=== PATIENT | male | born 1990 | race African-American/Black ===

== ENCOUNTER 2023-03-07 18:07 | Emergency (ER) | payer OTHER ==
[~2023-03-07] VITALS: Ht 188 cm; Wt 87.3 kg
[2023-03-07] MEDS ORDERED: methylPREDNISolone 125MG 2ML VIAL IV ONE (18:30)
[2023-03-07] MEDS ORDERED: NS 1,000 ML IV ONE (18:30)
[2023-03-07] MEDS ORDERED: FAMOTIDINE 20MG/2ML VIAL IVP ONE (18:30)
[2023-03-07] MEDS ORDERED: diphenhydrAMINE 50MG/ML VIAL IV ONE (18:30)
[2023-03-07] MEDS ORDERED: PRED20TA PO (19:41)
[2023-03-07 19:59] VITALS: BP 122/68
== END 2023-03-07 20:02 | disposition home or self-care (01) ==
LOC: M ED 18:07
DX: L50.9 Urticaria, unspecified (principal); Z91.018 Allergy to other foods
CPT/HCPCS: 96361; 96374; 96375; 99284; J1200; J2930; S0028